=== PATIENT | female | born 1985 | race Caucasian/White ===

== ENCOUNTER 2019-08-11 22:07 | Inpatient (IN) | payer MEDICAID ==
[~2019-08-11] VITALS: Ht 165.1 cm; Wt 63.5 kg
--- NOTE | 2019-08-11 22:14 | NUR ---
PT TAKEN TO BED 5
[2019-08-11] MEDS ORDERED: MORPHINE SULFATE 4 MG/ML SYR IVP ONE ×2 (22:15→22:45)
[2019-08-11] MEDS ORDERED: NACL 0.9% 1,000 ML IV ONE ×2 (22:15→22:45)
[2019-08-11] MEDS ORDERED: ONDANSETRON 4 MG/2 ML VIAL IVP ONE ×2 (22:15→22:45)
--- NOTE | 2019-08-11 22:15 | NUR ---
Dr. Hutton examining patient.
--- NOTE | 2019-08-11 22:20 | NUR ---
34 YEAR OLD FEMALE COMPLAINS OF UPPER EPIGASTRIC PAIN X 2 HOURS. PT STATES NAUSEA AND VOMITTING, DENIES DIARRHEA. PT AOX4, BREATHING EVEN AND UNLABORED, SKIN WARM AND DRY. PT PLACED ON MONITOR, VS STABLE. ERMD MADE AWARE. PMH - C SECTION, TUBAL LIGATION ALLERGIES - NKA
[2019-08-11 22:25] VITALS: BP 87/44
[2019-08-11] MEDS ORDERED: MORPHINE SULFATE 4 MG/ML SYR ONE (22:31)
[2019-08-11 22:32] LABS: BASOPHILS % (AUTO) 0.3 % (0.0-2.0); EOSINOPHILS # (AUTO) 0.1 K/uL (0-0.4); EOSINOPHILS % (AUTO) 1.2 % (0.0-4.0); HEMATOCRIT 34.9 % (36-48); HEMOGLOBIN 11.3 g/dL (12.0-16.0); LYMPHOCYTES # (AUTO) 1.4 K/uL (2.5-16.5); MEAN CORPUSCULAR HEMOGLOBIN 28 pg (27-31); MEAN CORPUSCULAR HGB CONC 32 g/dL (33-37); MEAN CORPUSCULAR VOLUME 86.1 fL (80-94); MONOCYTES # (AUTO) 0.6 K/uL (0.8-1.0); MONOCYTES % (AUTO) 6.8 % (1.7-9.3); NEUTROPHILS # (AUTO) 7.2 K/uL (1.8-7.7); NEUTROPHILS % (AUTO) 76.7 % (42.2-75.2); PLATELET COUNT (AUTO) 307 K/uL (140-450); RED BLOOD CELL COUNT(AUTO) 4.05 MIL/uL (4.20-5.40); RED CELL DISTRIBUTION WIDTH 13.7 % (11.6-13.7); WHITE BLOOD COUNT (AUTO) 9.4 K/uL (4.8-10.8)
[2019-08-11] MEDS ORDERED: ONDANSETRON 4 MG/2 ML VIAL ONE (22:32)
--- NOTE | 2019-08-11 22:35 | NUR ---
PT STATES SHE IS UNABLE TO URINATE, NO CHANCE OF DUE TO TUBAL LIGATION HISTORY
--- NOTE | 2019-08-11 22:40 | NUR ---
PT BP 90/38, ERMD MADE AWARE, STATES IT IS OK TO GIVE MORPHINE. PT STATES SHE USUALLY HAS LOW BLOOD PRESSURE.
--- NOTE | 2019-08-11 22:43 | NUR ---
Ultrasound at bedside.
[2019-08-11 22:58] LABS: ALBUMIN 4.1 g/dL (3.4-5.0); CARBON DIOXIDE 29.9 mmol/L (21-32); CREATININE 0.9 mg/dL (0.6-1.3); POTASSIUM 3.6 mmol/L (3.5-5.1); TOTAL BILIRUBIN 0.5 mg/dL (0.0-1.0)
[2019-08-11 23:04] LABS: ANION GAP 13.7 (8-16)
--- NOTE | 2019-08-11 23:38 | NUR ---
Pt aaox4 and she state dshe was relived from the pain. Pt given ice cubes and awaiting for UA sample. Pt given a bedpan at the bedside and instructed to call in case she needs assistance to the restroom.
--- NOTE | 2019-08-11 23:41 | NUR ---
Note josue in EDM - 08/11/19 at 2343 by [email or web address] phebotomist here and pt blood sent to lab. Pt resting comfortably on bed. Pt b/p re-check 148/85. No pain noted at this time.
[2019-08-11] MEDS ORDERED: LEVOFLOXACIN 500 MG/D5W PREMIX 100 ML IV ONE (23:45)
[2019-08-12] MEDS ORDERED: ACETAMINOPHEN 325 MG TAB PO PRN
[2019-08-12] MEDS ORDERED: HYDROcodone/APAP 5/325 MG 1 TAB TAB PO PRN
[2019-08-12] MEDS ORDERED: DOCUSATE SODIUM 100 MG GELCAP PO PRN
[2019-08-12] MEDS ORDERED: ONDANSETRON 4 MG/2 ML VIAL IM/IVP PRN
[2019-08-12] MEDS ORDERED: MORPHINE SULFATE 2 MG/ML SYR IVP PRN
--- NOTE | 2019-08-12 00:11 | NUR ---
Pt for admission to med-surg per Dr Katherin del valle. Pt made aware and his at the bedside talking to the pt. Pt has a room to med-surg 105 B.
--- NOTE | 2019-08-12 00:14 | NUR ---
X-Ray at bedside.
--- NOTE | 2019-08-12 00:15 | NUR ---
pt states unable to obtain urine, ermd made aware
--- NOTE | 2019-08-12 00:17 | NUR ---
Dr Pandey at the pt bedside explaining to the pt and his the need for admission and pt verbalize sunderstanding.
[2019-08-12 00:30] VITALS: BP 103/57
--- NOTE | 2019-08-12 00:30 | NUR ---
Patient will be admitted to care of DR KERN. Admited to [facility]. Will go to room 105B. Belongings list completed. Report to Aleyda DON. Endorsed to next nurse urine still needs to be obtained.
--- NOTE | 2019-08-12 00:30 | NUR ---
RECEIVED BEDSIDE REPORT FROM ED RN FOR PT'S CONTINUITY OF CARE. PT IS AAOX4, AMBULATORY, MEXICAN SPEAKING, IS ON ROOM AIR, HAS RIGHT AC 20G WITH IV ABX RUNNING, SKIN IS INTACT, PT DENIES ANY PAIN AT THIS TIME. EXPLAINED TO PT THE SENIOR ENGINEERING ASSOCIATE ROUTINE, PT VERBALIZED UNDERSTANDING. SAFETY MEASURES IN PLACE AND CALL LIGHT IS WITHIN REACH. VS FF: ORAL TEMP 97.5, BP 103/57, HR 68, O2 SAT 98%, RR 20. WILL MONITOR PT THROUGHOUT SHIFT.
[2019-08-12 00:31] LABS: MAGNESIUM 1.9 mg/dL (1.8-2.4); PHOSPHORUS 3.2 mg/dL (2.5-4.9); THYROID STIMULATING HORMONE 4.13 uIU/mL (0.34-3.74)
[2019-08-12 00:53] LABS: PROTHROMBIN TIME 9.9 secs (10.8-13.4)
[2019-08-12] MEDS: DEXT 5% / NACL 0.9% 500 ML IV SCH ×5 (02:20→21:01)
--- NOTE | 2019-08-12 02:30 | NUR ---
PT ASLEEP WITH NO SIGNS OF DISTRESS. ADMINISTERED IVF D5 NS AT 80ML/HR. WILL CONTINUE TO MONITOR PT.
--- NOTE | 2019-08-12 04:30 | NUR ---
PT ASLEEP WITH NO SIGNS OF DISTRESS OR DISCOMFORT. PT HAS NOT COLLECTED URINE YET, PT IS AWARE TO COLLECT URINE. WILL CONTINUE TO MONITOR.
[2019-08-12 06:21] LABS: MAGNESIUM 1.7 mg/dL (1.8-2.4); PHOSPHORUS 3.2 mg/dL (2.5-4.9)
[2019-08-12 06:26] LABS: BASOPHILS % (AUTO) 0.3 % (0.0-2.0); EOSINOPHILS % (AUTO) 0.6 % (0.0-4.0); HEMATOCRIT 30.6 % (36-48); HEMOGLOBIN 10.1 g/dL (12.0-16.0); LYMPHOCYTES # (AUTO) 1.3 K/uL (2.5-16.5); LYMPHOCYTES % (AUTO) 17.4 % (20.5-51.1); MEAN CORPUSCULAR HEMOGLOBIN 29 pg (27-31); MEAN CORPUSCULAR HGB CONC 33 g/dL (33-37); MEAN CORPUSCULAR VOLUME 86.2 fL (80-94); MONOCYTES # (AUTO) 0.5 K/uL (0.8-1.0); MONOCYTES % (AUTO) 6.6 % (1.7-9.3); NEUTROPHILS # (AUTO) 5.4 K/uL (1.8-7.7); NEUTROPHILS % (AUTO) 75.1 % (42.2-75.2); PLATELET COUNT (AUTO) 248 K/uL (140-450); RED BLOOD CELL COUNT(AUTO) 3.55 MIL/uL (4.20-5.40); RED CELL DISTRIBUTION WIDTH 14.1 % (11.6-13.7); WHITE BLOOD COUNT (AUTO) 7.2 K/uL (4.8-10.8)
--- NOTE | 2019-08-12 06:40 | NUR ---
PT AWAKE, DENIES ANY PAIN OR DISCOMFORT. REMINDED PT TO COLLECT URINE SAMPLE. PT VERBALIZED UNDERSTANDING. WILL ENDORSE PT TO AM SHIFT RN FOR PT'S CONTINUITY OF CARE.
[2019-08-12 06:46] LABS: ANION GAP 13.6 (8-16); CARBON DIOXIDE 25.1 mmol/L (21-32); CREATININE 0.6 mg/dL (0.6-1.3); POTASSIUM 3.7 mmol/L (3.5-5.1)
--- NOTE | 2019-08-12 07:05 | NUR ---
RECEIVED REPORT FROM NIGHT NURSE, PT IS AAOX4, ON ROOM AIR, SKIN INTACT AND IV SITES ON RIGHT AC G20, NO DISTRESS NOTED AT THIS TIME,SAFETY MEASURES IN PLACE AND CALL LIGHT WITHIN REACH. WILL CONTINUE TO MONITOR.
--- NOTE | 2019-08-12 07:38 | NUR ---
[facility] AT [facility] TIME AND ORDERED PT NPO, NO DILAUDID, MORPHINE OR PAIN MEDICATIONS FOR 2-3 HOURS BEFORE THE HIDA SCAN. WILL CONTINUE TO MONITOR.
[2019-08-12 08:00] VITALS: BP 86/52
--- NOTE | 2019-08-12 10:29 | NUR ---
PT WAS OUT FOR BENJAMIN DELUCA. FLOW PROCEDURE BY NURSE GREEN OF NUCLEAR MEDICINE VIA WHEELCHAIR AT THIS TIME. PT IS STABLE AND AWARE. SAFETY MEASURES IN PLACE, CALL LIGHT WITHIN REACH WILL CONTINUE TO MONITOR.
--- NOTE | 2019-08-12 12:20 | NUR ---
PATIENT CAME BACK FROM HER ROOM AFTER THE NM HIDA GB VASCULAR FLOW.HOOK TO HER ON IV. PT IS STABLE.
--- NOTE | 2019-08-12 13:45 | NUR ---
DR CASTILLO MADE ROUNDS AT THIS TIME AND INFORMED THE PATIENT ABOUT THE SURGERY TOMORROW MORNING. PT AGREED TO THE PROCEDURE.CONSENT SIGNED AND EXPLANATION ABOUT THE PROCEDURE WAS GIVEN.
[2019-08-12 16:00] VITALS: BP 95/51
--- NOTE | 2019-08-12 19:05 | NUR ---
ENDORSED PT TO NIGHT NURSE FOR CONTINUITY OF CARE.PT IS STABLE
--- NOTE | 2019-08-12 19:06 | NUR ---
RECEIVED BEDSIDE REPORT FROM AM SHIFT ARIAN HARRIS. FOR PT'S CONTINUITY OF CARE. PT IS AAOX4, AMBULATORY, SOUTH KOREAN SPEAKING, IS ON ROOM AIR, HAS RIGHT HAND 20G PATENT AND INTACT. SKIN IS INTACT, PT DENIES ANY PAIN AT THIS TIME. EXPLAINED TO PT THE ZIPPER SETTER CHAINSTITCH ROUTINE, PT VERBALIZED UNDERSTANDING. SAFETY MEASURES IN PLACE AND CALL LIGHT IS WITHIN REACH. WILL MONITOR PATIENT.
--- NOTE | 2019-08-12 19:07 | NUR ---
RECEIVED WITH RIGHT UPPER EXTREMITY SWOLLEN, WITH FLUID OVERLOAD ON THE RIGHT UPPER EXTREMITY. INFORMED DR. MOHAMUD. STOPPLED THE IVF AND D/D CURRENT IV SITE THERE AND WILL START ANOTHER LINE.
--- NOTE | 2019-08-12 19:30 | NUR ---
STARTED ANOTHER IVF ON THE LEFT FOREARM G 22, PATENT AND WILL START THE K AND THE MAIN IV ON THIS LINE. NO SWELLING NOTED ON THE LEFT ARM
[2019-08-12 20:28] LABS: APPEARANCE,URINE CLEAR (CLEAR); BILIRUBIN,URINE NEGATIVE (NEGATIVE); BLOOD, URINE NEGATIVE (NEGATIVE); COLOR,URINE YELLOW (YELLOW); LEUKOCYTE ESTERASE ,URINE NEGATIVE (NEGATIVE); NITRITE, URINE NEGATIVE (NEGATIVE); UGLUCOSE NEGATIVE (NEGATIVE)
[2019-08-12] MEDS ORDERED: LEVOFLOXACIN 500 MG/D5W PREMIX 100 ML IV ONE (20:51)
--- NOTE | 2019-08-12 21:01 | NUR ---
D5NS BAR CODE NOT SCANNING VERIFIED W/ CHARGE NURSE
[2019-08-12 21:10] LABS: BARBITURATE, URINE NEGATIVE ng/ml (NEG <=200); BENZODIAZEPINE, URINE NEGATIVE ng/mL (NEG <=200); CANNABINOID, URINE NEGATIVE ng/mL (NEG <=50); COCAINE, URINE NEGATIVE ng/mL (NEG <=300); OPIATE, URINE POSITIVE ng/mL (NEG <=2000); PHENCYCLIDINE SCREEN,URINE NEGATIVE ng/mL (NEG <=25)
[2019-08-12] MEDS ORDERED: LEVOFLOXACIN 500 MG/D5W PREMIX 100 ML IV SCH (23:00)
[2019-08-13] VITALS: BP 88/55
--- NOTE | 2019-08-13 03:00 | NUR ---
CHECKED ON PATIENT ASLEEP, WILL FREQUENTLY MONITOR
--- NOTE | 2019-08-13 04:13 | NUR ---
NO SOB; NO RESPIRATORY DISTRESS; NO COMPLAINTS OF PAIN. WILL CONTINUE TO MONITOR;
[2019-08-13 07:09] LABS: BASOPHILS % (AUTO) 0.4 % (0.0-2.0); EOSINOPHILS # (AUTO) 0.1 K/uL (0-0.4); EOSINOPHILS % (AUTO) 1.5 % (0.0-4.0); HEMATOCRIT 31.8 % (36-48); HEMOGLOBIN 10.5 g/dL (12.0-16.0); LYMPHOCYTES # (AUTO) 1.5 K/uL (2.5-16.5); LYMPHOCYTES % (AUTO) 35.2 % (20.5-51.1); MEAN CORPUSCULAR HEMOGLOBIN 29 pg (27-31); MEAN CORPUSCULAR HGB CONC 33 g/dL (33-37); MEAN CORPUSCULAR VOLUME 86.6 fL (80-94); MONOCYTES # (AUTO) 0.5 K/uL (0.8-1.0); MONOCYTES % (AUTO) 10.9 % (1.7-9.3); NEUTROPHILS # (AUTO) 2.2 K/uL (1.8-7.7); PLATELET COUNT (AUTO) 248 K/uL (140-450); RED BLOOD CELL COUNT(AUTO) 3.67 MIL/uL (4.20-5.40); RED CELL DISTRIBUTION WIDTH 14.1 % (11.6-13.7); WHITE BLOOD COUNT (AUTO) 4.2 K/uL (4.8-10.8)
[2019-08-13] MEDS ORDERED: BUPIVACAINE-MPF 0.25% 30 ML VIAL INJ ONE (07:12)
[2019-08-13] MEDS ORDERED: LIDOCAINE 1% 500 MG/50 ML VIAL ONE (07:12)
[2019-08-13] MEDS: DEXT 5% / NACL 0.9% 500 ML IV SCH (07:15)
--- NOTE | 2019-08-13 07:15 | NUR ---
PATIENT WAS TAKEN THE OR STAFF; IVF WAS SCHEDULED TO CHANGED AT 0715 BUT PATIENT HAS AN OR.
--- NOTE | 2019-08-13 07:17 | NUR ---
PT IS OFF UNIT TO OR WITH OR NURSES.
[2019-08-13 07:21] LABS: ANION GAP 10.5 (8-16); CARBON DIOXIDE 27.5 mmol/L (21-32); CREATININE 0.7 mg/dL (0.6-1.3)
[2019-08-13 07:24] LABS: CHOL/HDL RATIO 2.5 (1-4.5)
[2019-08-13] MEDS ORDERED: SUCCINYLCHOLINE CHLORIDE 200 MG/10 ML VIAL IVP ONE (07:27)
[2019-08-13] MEDS ORDERED: GLYCOPYRROLATE 0.2 MG/ML VIAL ONE (07:27)
[2019-08-13] MEDS ORDERED: PROPOFOL 200 MG/20 ML VIAL IV ONE (07:27)
[2019-08-13] MEDS ORDERED: ROCURONIUM 50 MG/5 ML VIAL IV ONE (07:27)
[2019-08-13] MEDS ORDERED: HYDROmorphone PFS 2 MG/ML SYR ONE (07:27)
[2019-08-13] MEDS ORDERED: DESFLURANE 240 ML BTL INH ONE (07:27)
[2019-08-13] MEDS ORDERED: KETOROLAC 30 MG/ML VIAL ONE (07:27)
[2019-08-13] MEDS ORDERED: fentaNYL 0.05 MG/ML VIAL ONE (07:27)
[2019-08-13] MEDS ORDERED: NEOSTIGMINE 1:1000 10 MG/10 ML VIAL ONE (07:27)
[2019-08-13] MEDS ORDERED: ONDANSETRON 4 MG/2 ML VIAL ONE (07:27)
[2019-08-13 07:40] LABS: MAGNESIUM 1.9 mg/dL (1.8-2.4); PHOSPHORUS 3.4 mg/dL (2.5-4.9)
[2019-08-13] MEDS ORDERED: HYDROmorphone 1 MG/ML AMP IVP PRN ×2 (07:55→08:50)
[2019-08-13] MEDS ORDERED: ONDANSETRON 4 MG/2 ML VIAL IVP PRN (07:55)
[2019-08-13] MEDS ORDERED: FERROUS SULFATE 325 MG TABEC PO SCH (08:00)
[2019-08-13 08:06] LABS: T4 (THYROXINE) 8.6 ug/dL (4.5-12.0)
[2019-08-13] MEDS ORDERED: MORPHINE SULFATE 2 MG/ML SYR IVP PRN (08:50)
[2019-08-13] MEDS ORDERED: ACETAMINOPHEN 325 MG TAB PO PRN (08:50)
[2019-08-13] MEDS ORDERED: HYDROcodone/APAP 5/325 MG 1 TAB TAB PO PRN (08:50)
[2019-08-13] MEDS ORDERED: MORPHINE SULFATE 4 MG/ML SYR IV PRN (08:50)
[2019-08-13] MEDS ORDERED: ASCORBIC ACID 500 MG TAB PO SCH (09:00)
--- NOTE | 2019-08-13 09:39 | NUR ---
PATIENT HAS BEEN SCREENED AND CATEGORIZED LOW NUTRITION RISK. PATIENT WILL BE SEEN WITHIN 7 DAYS OF ADMISSION. 08/18/[address]
[2019-08-13 09:45] VITALS: BP 109/58
--- NOTE | 2019-08-13 09:45 | NUR ---
PT CAME BACK TO UNIT ACCOMPANIED WITH PACU ABILIO DON. 3 ABDOMINAL BANDAGES AND 4X4 GAUZE COVERED WITH TIARA ATTACHED NOTED. EMPTIED 85 ML PINK DRAINAGE FROM TIARA. PT IS AWAKE AND TALKING ON HER PHONE AT THIS TIME. NO SIGNS OF DISTRESS NOTED. VITAL SIGNS TAKEN; TEMP 97.7, BP 109/58, PULSE 62, RR 18, PAIN 2/10 WITHIN PT'S TOLERABLE LIMIT. SAFETY MEASURES IN PLACE.
[2019-08-13] MEDS ORDERED: DEXT 5% /NACL 0.9% 1,000 ML IV SCH (09:48)
--- NOTE | 2019-08-13 09:55 | NUR ---
ADMINISTERED SCHEDULED MEDS WITH SIPS OF WATER, MEDS EDUCATION PROVIDED, PT TOLERATED PO MEDS WELL. PT IS TALKING ON HER PHONE AT THIS TIME. NO SIGNS OF DISTRESS NOTED. SCD ON BILATERALLY. SAFETY MEASURES IN PLACE.
--- NOTE | 2019-08-13 10:08 | NUR ---
PROVIDED INCENTIVE SPIROMETER AND DEMONSTRATED ON HOW TO USE IT. EDUCATED PT ON USING THE INCENTIVE SPIROMETER PROMOTE BETTER LUNG FUNCTION. ENCOURAGED PT TO USE IT WHEN SHE IS AWAKE AND TOLERATED. PT WAS AWARE AND UNDERSTOOD.
--- NOTE | 2019-08-13 11:26 | NUR ---
PT AWAKE AND TALKING ON HER PHONE. DENIED PAIN, SOB AND DIZZINESS AT THIS TIME. DR ZENG IS BY BEDSIDE. NO SIGNS OF DISTRESS NOTED. SAFETY MEASURES IN PLACE.
--- NOTE | 2019-08-13 11:31 | NUR ---
COMMUNICATIONS INSTRUCTOR NOTE: Basic Screen: Yes High Risk DC Screen [place]: KELVIN MENDOZA Home Relationship: FRIEND Pre-Admission Living Arrangements: Lives with Other Prior ADL Independent Current Home Health Name/Tel: N/A Current DME/02 Name/Tel: N/A Current Hospice Name/Tel: N/A Current Dialysis Name/Tel: N/A Healthcare Decision Maker: Patient Advance Directive No Physician Orders for Life Sustaining Treatment Form No Patient/Family Have Educational Needs No Discipline: Case Mgt/Social Svcs Tentative Discharge Plan/Destination: No Needs Identified Will require assistance post discharge: No Referred to Conditioner Tumbler Operator: No Tentative Discharge Plan Summary: PATIENT IS A 34-YEAR-OLD FEMALE ADMITTED FOR ACUTE CHOLECYSTITIS. PATIENT HAS NO PERTINENT PMHX. PATIENT WAS ADMITTED FROM HOME WHERE SHE LIVES WITH ROOMMATES. SW CONTACTED KELVIN MENDOZA, FRIEND OF PATIENT [phone]. PER KELVIN, PATIENT IS INDEPENDENT WITH ADLS AND REPORTS NO HISTORY OF SUBSTANCE ABUSE OR MENTAL HEALTH. KELVIN STATED THAT PATIENT LIVES WITH TWO ROOMMATES. TENTATIVE DSICHARGE PLAN IS FOR PATIENT TO RETURN HOME. NO FURTHER NEEDS IDENTIFIED. Signature: DEANNE BOWIE Date: Aug 13, 2019 Time: 11:29
--- NOTE | 2019-08-13 11:43 | NUR ---
EMPTIED 80 ML PINK DRAINING FROM TIARA AND APPLIED ABDOMINAL BINDER PER MD ORDER. PT TOLERATED WELL AND RESTING ON BED AT THIS TIME. NO SIGNS OF ACUTE DISTRESS NOTED. SAFETY MEASURES IN PLACE.
--- NOTE | 2019-08-13 13:40 | NUR ---
ASSISTED PT TO AMBULATE TO THE BATHROOM AND BACK ON BED SAFELY. NO SIGNS OF DISTRESS NOTED. SAFETY MEASURES IN PLACE.
--- NOTE | 2019-08-13 15:06 | NUR ---
EMPTIED 25 ML PINK DRAIN FROM TIARA. PT IS RESTING AND PLAYING ON HER PHONE ON BED AT THIS TIME. DENIED PAIN, SOB AND DIZZINESS. NO SIGNS OF DISTRESS NOTED. SCD ON BILATERALLY. SAFETY MEASURES IN PLACE.
[2019-08-13 16:00] VITALS: BP 105/59
--- NOTE | 2019-08-13 17:40 | NUR ---
ATTENDED TO CALL LIGHT, ASSISTED PT TO USE THE BATHROOM AND BACK ON BED. CONNECTED SCD. PT IS RESTING ON BED AT THIS TIME. NO SIGNS OF DISTRESS NOTED. SAFETY MEASURES IN PLACE.
--- NOTE | 2019-08-13 19:07 | NUR ---
ENDORSED PT AT BEDSIDE TO OLIVING MACHINE OPERATOR NURSE ENRIQUETA FOR CONTINUITY OF CARE. PT AWAKE AND RESTING ON BED AT THIS TIME. NO SIGNS OF DISTRESS NOTED. PT IS IN STABLE CONDITION.
--- NOTE | 2019-08-13 19:08 | NUR ---
RECD. RESTING IN BED, AWAKE, A/OX4. RESPIRATION EVEN AND UNLABORED. IV OF D5NS AT 80 ML/HR INFUSING, RIGHT AC G20. S/P LAP CHOLECYSTECTOMY, INCISION IN THE ABDOMEN (3) WITH BAND AID, WITH ONE TIARA DRAINING SANGUINOUS FLUID, MINIMAL AMOUNT WITH ABDOMINAL BINDER IN PLACED. TOLERATING CLEAR LIQUID DIET. VOIDING WELL. AMBULATORY TO THE BR. ON BILATERAL LEG SEQUENTIALS. PAIN IN HTE ABDOMEN 03/23, STATED TOLERABLE. PLAN OF CARE FOR THE SHIFT DISCUSSED. VERBALIZED UNDERSTANDING.
--- NOTE | 2019-08-13 20:00 | NUR ---
Patient's Plan of Care was discussed and reviewed with PRANAV: ENRIQUETA
--- NOTE | 2019-08-13 21:30 | NUR ---
DISCHARGE INSTRUCTIONS GIVEN. PATIENT VERBALIZED UNDERSTANDING. TIARA WITH OUTPUT OF 10 ML SANGUINEOUS FLUID, TAKEN OUT BY CHARGE NURSE SHIRA.
--- NOTE | 2019-08-13 21:45 | NUR ---
GIVEN MORPHINE FOR PAIN 08/21 MD ORDERED. SCANNER NOT WORKING, INPUT MANUALLY. PT TOLERATED WELL.
[2019-08-13 22:04] VITALS: BP 97/55
[2019-08-13] MEDS ORDERED: HYDR-5122 PO ×3 (22:23→22:27)
--- NOTE | 2019-08-13 22:30 | NUR ---
IV DISCONTINUED AND TAKEN OUT. BELONGINGS OF PATIENT ALL PLACED IN PLASTIC BAGS.
--- NOTE | 2019-08-13 22:55 | NUR ---
TAKEN TO HOSPITAL LOBBY PARKING VIA W/C IN STABLE CONDITION, ACCOMPANIED BY SCHOOL SERVICES OFFICER FOR DISCHARGED TO HOME TO WAITING FAMILY IN A PRIVATE VEHICLE.
== END 2019-08-13 22:55 | disposition home or self-care (01) | DRG 710 ==
LOC: MED 22:07 → MTU 08-12
PROVIDERS: ADMIT General Practice; ATTEND General Practice
PROC: 0FT44ZZ Resection of Gallbladder, Percutaneous Endoscopic Approach (ICD-10-PCS; principal; 2019-08-13 07:30)
DX: A41.9 Sepsis, unspecified organism (principal); K80.00 Calculus of gallbladder with acute cholecystitis without obstruction; D64.9 Anemia, unspecified; E83.42 Hypomagnesemia; E02 Subclinical iodine-deficiency hypothyroidism; Z98.51 Tubal ligation status; Z98.891 History of uterine scar from previous surgery
CPT/HCPCS: 36415; 71045; 76705; 78445; 80048; 80053; 80305; 81003; 82150; 82374; 82607; 82728; 82746; 83036; 83540; 83690; 83735; 83880; 84100; 84436; 84443; 84702; 85025; 85045; 85610; 85730; 86886; 86900; 86901; 87081; 96361; 96365; 96375; 99285; A9510; J0330; J1170; J1885; J1956; J2001; J2270; J2405; J2704; J2710; J3010; J3490; J7030; J7042; Q0092

== ENCOUNTER 2019-08-25 17:49 | Emergency (ER) | payer MEDICAID ==
[~2019-08-25] VITALS: Ht 165.1 cm; Wt 79.8 kg
[~2019-08-25 17:49] MED LIST: HYDR-5122 PO
[2019-08-25 17:56] VITALS: BP 96/50
[2019-08-25] MEDS ORDERED: NACL 0.9% 1,000 ML IV SCH (18:11)
[2019-08-25] MEDS ORDERED: MORPHINE SULFATE 4 MG/ML SYR IVP ONE (18:15)
--- NOTE | 2019-08-25 18:20 | NUR ---
DR LI AT BEDSIDE EVALUATING PT.
--- NOTE | 2019-08-25 18:22 | NUR ---
C/O MID UPPER ABDOMINAL SURGICAL AREA PAIN X 1 HOUR AGO. PT HAD LAPAROSCOPIC CHOLECYSTECTOMY HERE 08/13/19 & STITCHES OFF 2 DAYS AGO. DENIES N/V/D.PT AOX4 , AFIBRILE ,SCE CBS BLF,SOFT ROUND , NABS AMBULATORY WITH STEADY GAIT.
[2019-08-25 18:25] LABS: BASOPHILS # (AUTO) 0.1 K/uL (0.00-0.22); BASOPHILS % (AUTO) 0.7 % (0.0-2.0); EOSINOPHILS # (AUTO) 0.2 K/uL (0-0.4); EOSINOPHILS % (AUTO) 2.9 % (0.0-4.0); HEMATOCRIT 33.9 % (36-48); HEMOGLOBIN 10.9 g/dL (12.0-16.0); LYMPHOCYTES % (AUTO) 23.6 % (20.5-51.1); MEAN CORPUSCULAR HEMOGLOBIN 28 pg (27-31); MEAN CORPUSCULAR HGB CONC 32 g/dL (33-37); MONOCYTES # (AUTO) 0.4 K/uL (0.8-1.0); NEUTROPHILS # (AUTO) 5.7 K/uL (1.8-7.7); NEUTROPHILS % (AUTO) 67.8 % (42.2-75.2); PLATELET COUNT (AUTO) 336 K/uL (140-450); RED BLOOD CELL COUNT(AUTO) 3.95 MIL/uL (4.20-5.40); WHITE BLOOD COUNT (AUTO) 8.4 K/uL (4.8-10.8)
--- NOTE | 2019-08-25 18:30 | NUR ---
PT REFUSE MORPHINE DR LI INFORMED AND AWARE.
--- NOTE | 2019-08-25 18:32 | NUR ---
PT AMBULATE TO RESTROOM WITH STEADY GAIT TO VOID.
--- NOTE | 2019-08-25 18:36 | NUR ---
PT COMFORTABLE IN BED TALKING ON HER CELL PHONE ,SIDE RAILS UP X1 AND LOCK.
--- NOTE | 2019-08-25 18:41 | NUR ---
PT TO CT SCAN VIA WHEELCHAIR.
[2019-08-25 18:42] LABS: BILIRUBIN,URINE NEGATIVE (NEGATIVE); BLOOD, URINE NEGATIVE (NEGATIVE); COLOR,URINE YELLOW (YELLOW); LEUKOCYTE ESTERASE ,URINE NEGATIVE (NEGATIVE); NITRITE, URINE NEGATIVE (NEGATIVE); PH,URINE 6.5 (5.0-9.0); UGLUCOSE NEGATIVE (NEGATIVE)
[2019-08-25 18:45] LABS: APPEARANCE,URINE SLIGHTLY CLOUDY (CLEAR)
--- NOTE | 2019-08-25 18:51 | NUR ---
PT BACK FROM CT SCAN VIA WHEELCHAIR.
--- NOTE | 2019-08-25 19:06 | NUR ---
GAVE REPORT TO ARIAN VÁSQUEZ ,PT COMFORTABLE IN BED WITH STABLE V/S ,SIDE RAILS UP X1 AND LOCK.
--- NOTE | 2019-08-25 19:18 | NUR ---
Dr. Rinaldi examining patient.
[2019-08-25] MEDS ORDERED: PANTOPRAZOLE 40 MG INJ VIAL IVP ONE (19:20)
[2019-08-25 19:53] LABS: ALBUMIN 3.7 g/dL (3.4-5.0); ANION GAP 12.5 (8-16); CREATININE 0.9 mg/dL (0.6-1.3); POTASSIUM 3.5 mmol/L (3.5-5.1); TOTAL BILIRUBIN 0.3 mg/dL (0.0-1.0)
[2019-08-25 20:36] VITALS: BP 131/80
--- NOTE | 2019-08-25 20:38 | NUR ---
Patient discharged with v/s stable. Written and verbal after care instructions given and explained. Patient alert, oriented and verbalized understanding of instructions. Ambulatory with steady gait. All questions addressed prior to discharge. ID band removed. Patient advised to follow up with PMD. Rx of PROTONIX, given. Patient educated on indication of medication including possible reaction and side effects. Opportunity to ask questions provided and answered.pt h/l d/c and aci given to the pt and pt verbalizes understanding. pt walk in steady gait and no other concerns noted. pt walks in steady gait and no dizziness.pt d/c
== END 2019-08-25 20:38 | disposition home or self-care (01) ==
LOC: MED 17:49
DX: R10.13 Epigastric pain (principal); Z90.49 Acquired absence of other specified parts of digestive tract
CPT/HCPCS: 36415; 74176; 80053; 81003; 81025; 83690; 85025; 96361; 96374; 99284; C9113; J7030; J2270

== ENCOUNTER 2019-10-27 21:19 | Emergency (ER) | payer SELFPAY ==
[~2019-10-27] VITALS: Ht 154.9 cm; Wt 83.9 kg
[2019-10-27 21:28] VITALS: BP 95/62
--- NOTE | 2019-10-27 21:33 | NUR ---
PT AMBULATED TO BED 4 WITH STEADY GAIT
--- NOTE | 2019-10-27 21:35 | NUR ---
URINE SAMPLE OBTAINED
--- NOTE | 2019-10-27 21:40 | NUR ---
PT 34 Y/O FEMALE BIB SELF FOR C/O EPIGASTRIC PAIN X 30 MIN AGO. PT STATES SHE FELT EPIGASTRIC PAIN 10/10 AFTER EATING SODA AND PIZZA. PT STATES SHE TOOK HYDROCODONE TO HELP RELIVE PAIN WITH INEFFECTIVE RESULTS. PT DENIES N/V/D. PT STATES HER BOWEL MOVEMENT ARE NORMAL. PT DENIES URINARY PAIN. MEDHX: GALLBLADDER SURGERY IN SEPTEMBER, GASTRITIS. ALLERGIES: NKA
--- NOTE | 2019-10-27 21:43 | NUR ---
ERMD AT BEDSIDE.
[2019-10-27] MEDS ORDERED: ACETAMINOPHEN 325 MG TAB PO ONE (21:45)
[2019-10-27] MEDS ORDERED: FAMOTIDINE 20 MG TAB PO ONE (21:45)
[2019-10-27] MEDS ORDERED: ALUMINUM HYD/MAG/SIMETHICONE 30 ML UDC PO ONE (21:45)
--- NOTE | 2019-10-27 22:00 | NUR ---
LAB AT BEDSIDE.
[2019-10-27 22:10] LABS: BASOPHILS % (AUTO) 0.6 % (0.0-2.0); EOSINOPHILS # (AUTO) 0.2 K/uL (0-0.4); EOSINOPHILS % (AUTO) 2.3 % (0.0-4.0); HEMATOCRIT 31.3 % (36-48); HEMOGLOBIN 10.4 g/dL (12.0-16.0); LYMPHOCYTES # (AUTO) 1.7 K/uL (2.5-16.5); LYMPHOCYTES % (AUTO) 20.3 % (20.5-51.1); MEAN CORPUSCULAR HEMOGLOBIN 28 pg (27-31); MEAN CORPUSCULAR HGB CONC 33 g/dL (33-37); MEAN CORPUSCULAR VOLUME 84.9 fL (80-94); MONOCYTES # (AUTO) 0.5 K/uL (0.8-1.0); MONOCYTES % (AUTO) 5.6 % (1.7-9.3); NEUTROPHILS % (AUTO) 71.2 % (42.2-75.2); PLATELET COUNT (AUTO) 262 K/uL (140-450); RED BLOOD CELL COUNT(AUTO) 3.69 MIL/uL (4.20-5.40); RED CELL DISTRIBUTION WIDTH 14.5 % (11.6-13.7); WHITE BLOOD COUNT (AUTO) 8.4 K/uL (4.8-10.8)
[2019-10-27] MEDS ORDERED: KETOROLAC 15 MG/ML VIAL IVP ONE (22:25)
[2019-10-27] MEDS ORDERED: ONDANSETRON 4 MG/2 ML VIAL IVP ONE (22:25)
[2019-10-27 22:27] LABS: ALBUMIN 3.6 g/dL (3.4-5.0); ANION GAP 13.5 (8-16); CREATININE 0.8 mg/dL (0.6-1.3); POTASSIUM 3.5 mmol/L (3.5-5.1); TOTAL BILIRUBIN 0.3 mg/dL (0.0-1.0)
--- NOTE | 2019-10-27 22:35 | NUR ---
PT CONTINUES WITH EPIGASTRIC PAIN 10/21. ERMD MADE AWARE AND GAVE NEW ORDERS.
--- NOTE | 2019-10-27 23:15 | NUR ---
PT STATES PAIN HAS DECREASED FROM 8/10 EPIGASTRIC PAIN TO 0/10 PAIN. PT STATES HAS NO C/O OF NAUSEA.
--- NOTE | 2019-10-27 23:18 | NUR ---
IV removed, catheter intact and site benign. Applied folded 4x4 gauze and tape to stop bleeding.
[2019-10-27 23:20] VITALS: BP 105/66
--- NOTE | 2019-10-27 23:20 | NUR ---
Patient discharged with v/s stable. Written and verbal after care instructions given and explained. Patient alert, oriented and verbalized understanding of instructions. Ambulatory with steady gait. All questions addressed prior to discharge. ID band removed. Patient advised to follow up with PMD. Rx of MAALOX, PEPCID given. Patient educated on indication of medication including possible reaction and side effects. Opportunity to ask questions provided and answered.
== END 2019-10-27 23:20 | disposition home or self-care (01) ==
LOC: MED 21:19
DX: R10.13 Epigastric pain (principal); Z79.899 Other long term (current) drug therapy; Z98.890 Other specified postprocedural states
CPT/HCPCS: 36415; 80053; 81025; 83690; 85025; 96374; 96375; 99284; J1885; J2405